=== PATIENT | female | born 1940 | race Caucasian/White ===

== ENCOUNTER 2018-03-28 07:00 | Inpatient (IN) | payer OTHER, BC ==
[~2018-03-28] VITALS: Ht 162.6 cm; Wt 94.5 kg
[~2018-03-28 07:00] MED LIST: ADULT LOW DOSE81 M1 PO; ASPIRIN E.C.81 M1 PO; Antivert PO; CALCITRATE + D1 EACH PO; CELEBREX200 MG PO; CHILDREN'S ASPI81 M1 PO; Coumadin,Jantoven PO; ESTRING1 EACH VG; Ecotrin PO; LOPRESSOR25 MG PO; MAGNESIUM200 MG PO; MULTIVITAMIN1 EAC2 PO; OMEGA 3 1,0001 EACH PO; Oscal 500 w/Vitamin PO; PREVACID30 MG PO; Pravachol PO; Prevacid PO; REGLAN5 MG PO; TOPROL XL50 MG PO; Theragran PO; ZESTORETIC,P1 TABLET PO; ZESTRIL,PRINIVI10 MG PO; celeBREX PO
[2018-03-28 07:31] LABS: BASOPHIL (%) 0.5 % (0-1); BASOPHIL COUNT 0.1 K/uL (0-0.1); EOSINOPHIL (%) 1.8 % (0-5); EOSINOPHIL COUNT 0.2 K/uL (0-0.3); HEMATOCRIT 38.8 % (36.0-46.0); IMMATURE GRANULOCYTE (%) 0.3 % (0.0-0.7); INTER. NORMALIZED RATIO 1.1; LYMPHOCYTE (%) 21.3 % (15-42); LYMPHOCYTE COUNT 2.5 K/uL (1.0-2.8); MCH 30.4 PG (29.0-34.0); MCHC 33.5 G/DL (30.0-36.0); MCV 90.7 FL (83-99); MONOCYTE (%) 9.5 % (3-12); MONOCYTE COUNT 1.1 K/uL (0-0.8); NEUTROPHIL (%) 66.6 % (45-76); NEUTROPHIL COUNT 7.7 K/uL (1.8-6.4); PLATELET COUNT 279 K/uL (156-360); RBC DIS.WIDTH-CV 13.4 % (11.8-14.6); RBC DIS.WIDTH-SD 44.8 % (39-53); RED BLOOD COUNT 4.28 M/uL (3.80-5.20); WHITE BLOOD COUNT 11.6 K/uL (4.1-10.2)
[2018-03-28 07:34] LABS: PTT 34.7 SEC (25-37)
[2018-03-28 07:51] LABS: AMYLASE 25 IU/L (1-118); CHLORIDE 101 MEQ/L (99-109); CREATININE 0.8 MG/DL (0.6-1.3); GFR ESTIMATE (CALCULATED) > 59 mL/min/; GLUCOSE 106 mg/dL (70-99); LIPASE 21 U/L (1.0-51.0); POTASSIUM 4.1 MEQ/L (3.7-5.4); SERUM ETHYL ALCOHOL < 10 mg/dL; SODIUM 137 MEQ/L (136-147); UREA NITROGEN (BUN) 12 mg/dL (9-23)
[2018-03-28 07:53] LABS: TROP-I INTERPRETATION NEGATIVE; TROPONIN-I < 0.01 ng/mL (0.0-0.30)
[2018-03-28 09:16] LABS: AMPHETAMINE NEGATIVE (500 ng/mL); BARBITURATES NEGATIVE (200 ng/mL); BENZODIAZEPINES NEGATIVE (150 ng/mL); BUPRENORPHINE NEGATIVE (10 ng/mL); COCAINE NEGATIVE (150 ng/mL); METHADONE NEGATIVE (200 ng/mL); METHAMPHETAMINE NEGATIVE (500 ng/mL); OPIATES (MORPHINE) PRESUMPTIVE POSITIVE (100 ng/mL); OXYCODONE NEGATIVE (100 ng/mL); PHENCYCLIDINE NEGATIVE (25 ng/mL); PROPOXYPHENE NEGATIVE (300 ng/mL); THC CANNABINOIDS NEGATIVE (50 ng/mL); TRICYCLIC ANTIDEPRESSANTS NEGATIVE (300 ng/mL)
[2018-03-28 09:38] LABS: APPEARANCE CLEAR ((CLEAR)); BILIRUBIN NEGATIVE; BLOOD NEGATIVE; COLOR STRAW ((YELLOW)); GLUCOSE (STRIP) NEGATIVE; KETONES NEGATIVE; LEUKOCYTES NEGATIVE; NITRITE NEGATIVE; PROTEIN (STRIP) NEGATIVE; SPECIFIC GRAVITY 1.004 (1.000-1.030); UCUL ADDED? NO; UROBILINOGEN 0.2 MG/DL (0.2-1.0)
[2018-03-28] MEDS ORDERED: CALCIUM CARB1 TABLET PO (10:39)
[2018-03-28] MEDS ORDERED: CELEBREX200 MG PO (10:41)
[2018-03-28] MEDS ORDERED: VITAMIN D2000 UNI1 PO (10:41)
[2018-03-28] MEDS ORDERED: MAGNESIUM PO (10:44)
[2018-03-28] MEDS ORDERED: GLUCOSAMINE CH1 EAC2 PO (10:46)
[2018-03-28] MEDS ORDERED: PRAVACHOL40 MG PO (10:46)
[2018-03-28] MEDS ORDERED: NORVASC2.5 MG PO (10:47)
[2018-03-28] MEDS ORDERED: XARELTO20 MG PO (10:48)
[2018-03-28] MEDS ORDERED: TIKOSYN500 MCG PO (10:48)
[2018-03-28] MEDS ORDERED: METOPROLOL SUCC25 MG PO (10:49)
[2018-03-28 11:46] LABS: HDL CHOLESTEROL 49 MG/DL (Desirable>=50); LDL CHOLESTEROL 122 mg/dL (Desirable<100); NON-HDL CHOLESTEROL 140 mg/dL (Desirable<160); TOTAL CHOLESTEROL 189 mg/dL (Desirable<200); TRIGLYCERIDES 89 MG/DL (Normal: <150)
[2018-03-28 12:20] VITALS: BP 177/86
[2018-03-28 15:04] VITALS: BP 145/74
[2018-03-28 19:35] VITALS: BP 138/63
[2018-03-28 23:18] VITALS: BP 123/65
[2018-03-29 03:39] VITALS: BP 133/71
[2018-03-29 07:00] VITALS: BP 144/63
[2018-03-29 10:44] LABS: HEMOGLOBIN A1c (GLYCOHEMOGLOB) 5.9 % (Below 5.7)
[2018-03-29 11:05] VITALS: BP 122/59
[2018-03-29 15:04] VITALS: BP 137/66
[2018-03-29 19:42] VITALS: BP 149/68
[2018-03-29 19:51] LABS: BASOPHIL (%) 0.4 % (0-1); BASOPHIL COUNT 0.1 K/uL (0-0.1); EOSINOPHIL (%) 1.5 % (0-5); EOSINOPHIL COUNT 0.2 K/uL (0-0.3); HEMATOCRIT 38.2 % (36.0-46.0); HEMOGLOBIN 12.8 G/DL (11.9-15.5); IMMATURE GRANULOCYTE (%) 0.3 % (0.0-0.7); LYMPHOCYTE (%) 17.7 % (15-42); LYMPHOCYTE COUNT 2.1 K/uL (1.0-2.8); MCH 30.2 PG (29.0-34.0); MCHC 33.5 G/DL (30.0-36.0); MCV 90.1 FL (83-99); MONOCYTE COUNT 1.1 K/uL (0-0.8); NEUTROPHIL (%) 71.1 % (45-76); NEUTROPHIL COUNT 8.4 K/uL (1.8-6.4); PLATELET COUNT 295 K/uL (156-360); RBC DIS.WIDTH-CV 13.5 % (11.8-14.6); RBC DIS.WIDTH-SD 43.9 % (39-53); RED BLOOD COUNT 4.24 M/uL (3.80-5.20); WHITE BLOOD COUNT 11.9 K/uL (4.1-10.2)
[2018-03-29 21:02] LABS: ERTH.SED.RATE 43 MM/HR (0-30)
[2018-03-29 23:49] VITALS: BP 143/66
[2018-03-30 03:42] VITALS: BP 137/63
[2018-03-30 07:55] VITALS: BP 175/79
[2018-03-30] MEDS ORDERED: CEPHALEXIN500 MG PO (11:44)
[2018-03-30] MEDS ORDERED: XARELTO10 MG PO (11:44)
[2018-03-30] MEDS ORDERED: ASPIR 8181 M1 PO (14:44)
== END 2018-03-30 12:38 | disposition home or self-care (01) | DRG 65 ==
LOC: EME 07:00 → EDOF 10:41 → ENRESERV 10:42 → 5SOUTH 12:03 → ENPENDDIS 03-30 12:09 → 5SOUTH 03-30 12:38
PROVIDERS: Nurse Practitioner Family; Physician Assistant; Specialist
DX: I63.9 Cerebral infarction, unspecified (principal); I48.2 Chronic atrial fibrillation; I48.0 Paroxysmal atrial fibrillation; S80.02XA Contusion of left knee, initial encounter; W19.XXXA Unspecified fall, initial encounter; M19.90 Unspecified osteoarthritis, unspecified site; G81.91 Hemiplegia, unspecified affecting right dominant side; M71.169 Other infective bursitis, unspecified knee; K21.9 Gastro-esophageal reflux disease without esophagitis; I10 Essential (primary) hypertension; M25.062 Hemarthrosis, left knee; Z90.49 Acquired absence of other specified parts of digestive tract; E66.9 Obesity, unspecified; Z90.710 Acquired absence of both cervix and uterus; Z79.82 Long term (current) use of aspirin; Z79.01 Long term (current) use of anticoagulants; Z86.73 Personal history of transient ischemic attack (TIA), and cerebral infarction without residual deficits; Z68.35 Body mass index [BMI] 35.0-35.9, adult; Z79.899 Other long term (current) drug therapy; R60.0 Localized edema
CPT/HCPCS: 70450; 70544; 70549; 70551; 73564; 80048; 80061; 81003; 82150; 83036; 83605; 83690; 84484; 84999; 85025; 85610; 85651; 85730; 86850; 86900; 86901; 92610 GN; 93005; 93306; 95819; 99281; 99285; G0480; J0696; J7030